=== PATIENT | male | born 1955 | race Caucasian/White ===

== ENCOUNTER 2017-12-30 14:30 | Emergency (ER) | payer BC ==
[2017-12-30 14:58] VITALS: BP 94/57
--- NOTE | 2017-12-30 15:16 | ED ---
Skin Complaint - HPI Summary HPI Summary: 62 yr old male with dry scaly rash left and right lower legs. Onset August 2017. He has used neosporin but hasnt gone away. He feels well otherwise. - History of Current Complaint Chief Complaint: UCSkin Time Seen by Provider: 12/30/17 14:56 Stated Complaint: SKIN COMPLAINT-LEGS Pain Intensity: 0 - Allergy/Home Medications Allergies/Adverse Reactions: Allergies Allergy/AdvReac Type Severity Reaction Status Date / Time No Known Allergies Allergy Verified 12/30/17 14:49 Home Medications: Home Medications Podofilox [Condylox] 0.5 % EX SEE INSTRUCTIONS 12/30/17 [History Confirmed 12/30] PMH/Surg Hx/FS Hx/Imm Hx Previously Healthy: Yes - Surgical History Surgery Procedure, Year, and Place: TONSILECTOMY Infectious Disease History: No Infectious Disease History: Denies: Traveled Outside the [place] in Last 30 Days - Family History Known Family History: Positive: Hypertension - Social History Occupation: Employed Full-time Alcohol Use: Rare Substance Use Type: Reports: None Smoking Status (MU): Current Some Day Smoker Type: Cigarettes Review of Systems Constitutional: Negative Positive: Rash All Other Systems Reviewed And Are Negative: Yes Physical Exam Triage Information Reviewed: Yes Vital Signs On Initial Exam: Initial Vitals Temp Pulse Resp BP Pulse Ox 99.3 F 58 16 94/57 98 12/30/17 14:51 12/30/17 14:51 12/30/17 14:51 12/30/17 14:51 12/30/17 14:51 Vital Signs Reviewed: Yes Appearance: Positive: Well-Appearing, No Pain Distress Skin: Positive: Warm, Other - there is a scaly, circular rash in 4 patches medial lower left leg and one patch medial right leg. Raised boarder, and red and scale in center consistent with tinea. Eyes: Positive: EOMI ENT: Positive: Normal ENT inspection Neck: Positive: Supple Respiratory/Lung Sounds: Positive: Clear to Auscultation Cardiovascular: Positive: RRR Musculoskeletal: Positive: Strength/ROM Intact Neurological: Positive: Sensory/Motor Intact, Alert, Oriented to Person Place, Time, CN Intact II-III Psychiatric: Positive: Normal - Lanre Coma Scale Best Eye Response: 4 - Spontaneous Best Motor Response: 6 - Obeys Commands Best Verbal Response: 5 - Oriented Coma Scale Total: 15 Diagnostics - Vital Signs Vital Signs Temp Pulse Resp BP Pulse Ox 12/30/17 14:51 99.3 F 58 16 94/57 98 - Laboratory Lab Statement: Any lab studies that have been ordered have been reviewed, and results considered in the medical decision making process. Course/Dx - Course Course Of Treatment: Tinea corporis. Rx miconazole. - Diagnoses Provider Diagnoses: Tinea corporis Discharge - Sign-Out/Discharge Documenting (check all that apply): Discharge - Discharge Plan Condition: Good Disposition: HOME Patient Education Materials: Tinea Corporis (ED) Referrals: [facility] [Outside] No Primary Care Phys,NOPCP [Primary Care Provider] - 1 Week Additional Instructions: use miconazole cream to the legs twice a day until rash gone for a week. - Billing Disposition and Condition Condition: GOOD Disposition: HOME
== END 2017-12-30 15:20 | disposition home or self-care (01) ==
LOC: UCCORT 14:30
DX: B35.4 Tinea corporis (principal); F17.210 Nicotine dependence, cigarettes, uncomplicated
CPT/HCPCS: 99212; G0463

== ENCOUNTER 2018-03-17 15:01 | Emergency (ER) | payer BC ==
[2018-03-17 15:40] VITALS: BP 108/73
--- NOTE | 2018-03-17 15:46 | UC ---
Skin Complaint HPI - HPI Summary HPI Summary: 62 yo male presents with rash to left lower leg. He tells me that he was seen a few months ago for what was diagnosed as ringworm on his left calf. He was prescribed antifungal cream and has been using this, but has been alternating antifungal cream and hydrocortisone cream. The rash is still there, but moderately improved. Denies fever, chills. - History of Current Complaint Chief Complaint: UCSkin Time Seen by Provider: 03/17/18 15:46 Stated Complaint: SKIN COMPLAINT Hx Obtained From: Patient Onset/Duration: Gradual Onset Current Severity: None Pain Intensity: 0 Pain Scale Used: 0-10 Numeric - Allergy/Home Medications Allergies/Adverse Reactions: Allergies Allergy/AdvReac Type Severity Reaction Status Date / Time No Known Allergies Allergy Verified 03/17/18 15:32 Home Medications: Home Medications Miconazole Nitrate 2 % VA BID 03/17/18 [History Confirmed 03/17/18] Review of Systems Constitutional: Negative Skin: Rash Respiratory: Negative Cardiovascular: Negative Neurovascular: Negative Neurological: Negative Psychological: Negative All Other Systems Reviewed And Are Negative: Yes PMH/Surg Hx/FS Hx/Imm Hx - Additional Past Medical History Additional PMH: None Previously Healthy: Yes - Surgical History Surgical History: Yes Surgery Procedure, Year, and Place: TONSILECTOMY - Family History Known Family History: Positive: Hypertension - Social History Lives: With Family Alcohol Use: None Substance Use Type: None Smoking Status (MU): Current Some Day Smoker Type: Cigarettes Amount Used/How Often: rare use Physical Exam - Summary Physical Exam Summary: GENERAL: NAD. WDWN. No pain distress. SKIN: Left calf: 1.0cm diameter area of hyperpigmentation and scaling. NTTP. No streaking, bleeding, or drainage. NECK: Supple. Nontender. No lymphadenopathy. CHEST: No accessory muscle use. Breathing comfortably and in no distress. CV: RRR. Without m/r/g. NEURO: Alert. CN II-XII grossly intact. PSYCH: Age appropriate behavior. Triage Information Reviewed: Yes Vital Signs: Initial Vital Signs Temp 99.1 F 03/17/18 15:35 Pulse 60 03/17/18 15:35 Resp 14 03/17/18 15:35 BP 108/73 03/17/18 15:35 Pulse Ox 97 03/17/18 15:35 Course/Dx - Course Course Of Treatment: Tinea infection to left leg. Advised to stop using steroid cream and to only use antifungal cream. - Diagnoses Provider Diagnoses: Tinea leg Discharge - Sign-Out/Discharge Documenting (check all that apply): Discharge/Admit/Transfer - Discharge Plan Condition: Stable Disposition: HOME Prescriptions: Ketoconazole 2 % CREAM (NF) [Nizoral 2% CREAM (NF)] 1 applic TOPICAL BID #1 tube Patient Education Materials: Tinea Corporis (ED) Referrals: No Primary Care Phys,NOPCP [Primary Care Provider] - Additional Instructions: If you develop a fever, shortness of breath, chest pain, new or worsening symptoms - please call your PCP or go to the ED. - Billing Disposition and Condition Condition: STABLE Disposition: Home
== END 2018-03-17 16:03 | disposition home or self-care (01) ==
LOC: UCCORT 15:01
DX: B35.9 Dermatophytosis, unspecified (principal); F17.210 Nicotine dependence, cigarettes, uncomplicated
CPT/HCPCS: 99212; G0463